=== PATIENT | female | born 1955 | race Native Hawaiian/Other Pacific Islander ===

== ENCOUNTER 2017-08-13 11:14 | Outpatient (CLI) | payer OTHER | END 2017-08-13 19:02 | disposition home or self-care (01) | LOC: MAMMO 11:14 | DX: Z12.31 Encounter for screening mammogram for malignant neoplasm of breast (principal) ==

== ENCOUNTER 2018-10-08 11:15 | Outpatient (CLI) | payer OTHER | END 2018-10-08 20:14 | disposition home or self-care (01) | LOC: MAMMO 11:15 | DX: Z12.31 Encounter for screening mammogram for malignant neoplasm of breast (principal) ==